=== PATIENT | female | born 2000 | race Caucasian/White ===

== ENCOUNTER 2019-08-13 00:29 | Emergency (ER) | payer SELFPAY ==
[2019-08-13] MEDS ORDERED: Ondansetron ODT TAB* 4 MG SL ONE (00:39)
--- NOTE | 2019-08-13 00:39 | ED ---
Substance Abuse/Use - HPI Summary HPI Summary: This pt is a 18 Y/O F presenting to [facility] after acute alcohol intoxication per EMS. The pt states that she drank beer, vodka, and wine while at a [employer] and began vomiting which prompted EMS to take her to [facility]. She states that she feels nauseous but denies any abdominal pain, CP, SOB, and headaches. She states that she has no pertinent PMHx. She has no aggravating or alleviating factors. - History Of Current Complaint Chief Complaint: EDSubstanceAbuse Stated Complaint: ETOH PER EMS Time Seen by Provider: 08/13/19 00:31 Hx Obtained From: Patient, EMS ?: No Onset/Duration of Drug/ETOH Abuse: Hours Ingestion History: Type/Name Of Drug - states vodka, champagne, wine, and beer Severity Initially: Moderate Character: Lethargic Aggravating Factor(s): Nothing Alleviating Factor(s): Nothing Associated Signs And Symptoms: Negative - abdominal pain, CP, SOB, and headaches , Nausea, Vomiting - Allergies/Home Medications Allergies/Adverse Reactions: Allergies Allergy/AdvReac Type Severity Reaction Status Date / Time No Known Allergies Allergy Verified 08/13/19 00:31 PMH/Surg Hx/FS Hx/Imm Hx Previously Healthy: Yes Endocrine/Hematology History: Denies: Hx Diabetes Cardiovascular History: Reports: Other Cardiovascular Problems/Disorders - murmur - Cancer History Hx Chemotherapy: No Hx Radiation Therapy: No - Surgical History Surgical History: Yes Surgery Procedure, Year, and Place: wisdom teeth - Immunization History Immunizations Up to Date: Yes Infectious Disease History: No Infectious Disease History: Denies: Traveled Outside the [place] in Last 30 Days - Family History Known Family History: Positive: Cardiac Disease - heart murmur on maternal side - Social History Occupation: Student - [employer] Lives: Dormitory/Roommates Alcohol Use: Occasionally Hx Substance Use: No Substance Use Type: Reports: None Hx Tobacco Use: No Smoking Status (MU): Never Smoked Tobacco Review of Systems Negative: Chest Pain Negative: Shortness Of Breath Positive: Vomiting, Nausea. Negative: Abdominal Pain Negative: Headache All Other Systems Reviewed And Are Negative: Yes Physical Exam - Summary Physical Exam Summary: Appearance: Well-appearing, Well-nourished, lying in bed comfortable Skin: Warm, dry, no obvious rash Eyes: sclera anicteric, no conjunctival pallor ENT: mucous membranes moist. No external signs of head trauma. Neck: full ROM is observed. Respiratory: No signs of respiratory distress Cardiovascular: Appears well perfused, pulses are nml Abdomen: deferred Musculoskeletal: Moving all 4 extremities without obvious discomfort Neurological: Awake and alert, answers questions appropriately, mentation is normal, speech is slightly slurred and appropriate Psychiatric: affect is normal, does not appear anxious or depressed Triage Information Reviewed: Yes Vital Signs On Initial Exam: Initial Vitals Temp Pulse Resp BP Pulse Ox 98.0 F 80 18 97/64 98 08/13/19 00:31 08/13/19 00:31 08/13/19 00:31 08/13/19 00:31 08/13/19 00:31 Vital Signs Reviewed: Yes Procedures - Sedation Patient Received Moderate/Deep Sedation with Procedure: No Diagnostics - Vital Signs Vital Signs Temp Pulse Resp BP Pulse Ox 08/13/19 00:31 98.0 F 80 18 97/64 98 - Laboratory Lab Statement: Any lab studies that have been ordered have been reviewed, and results considered in the medical decision making process. Course/Dx - Course Course Of Treatment: This pt is a 18 Y/O F presenting to [facility] after acute alcohol intoxication per EMS. The pt states that she drank beer, vodka, and wine while at a [employer] and began vomiting which prompted EMS to take her to [facility]. Her PE found that she has slightly slurred speech. She states that she was feeling better at 0418 and will be discharged home with a Dx of acute alcohol intoxication. - Diagnoses Differential Diagnosis/HQI/PQRI: Positive: Alcohol Withdrawal Provider Diagnoses: Acute alcohol intoxication Discharge ED - Sign-Out/Discharge Documenting (check all that apply): Patient Departure - discharge - Discharge Plan Condition: Improved Disposition: HOME Patient Education Materials: Alcohol Intoxication (ED), Abuse of Alcohol (ED) Referrals: [facility] [Outside] - Billing Disposition and Condition Condition: IMPROVED Disposition: Home - Attestation Statements Document Initiated by Scribe: Yes Documenting Scribe: Juan F Oates Provider For Whom Scribe is Documenting (Include Credential): Ricco Holden MD Scribe Attestation: Juan F Berry, scribed for Ricco Holden MD on 08/13/19 at 0533. Scribe Documentation Reviewed: Yes Provider Attestation: The documentation as recorded by the shenibeJuan F accurately reflects the service I personally performed and the decisions made by me, Ricco Holden MD Status of Presley Document: Viewed
[2019-08-13 04:27] VITALS: BP 106/62
== END 2019-08-13 04:25 | disposition home or self-care (01) ==
LOC: ED 00:29
DX: F10.129 Alcohol abuse with intoxication, unspecified (principal); R11.2 Nausea with vomiting, unspecified
CPT/HCPCS: 99282; A9270-GY